=== PATIENT | male | born 1960 | race Caucasian/White ===

== ENCOUNTER → 2024-12-06 07:39 | Outpatient (REF) | payer BC, SELFPAY | LOC: RCS 07:39 | PROVIDERS: ATTENDING PHYSICIAN Internal Medicine Cardiovascular Disease; FAMILY PHYSICIAN Family Medicine | DX: I25.10 Atherosclerotic heart disease of native coronary artery without angina pectoris (principal); R53.82 Chronic fatigue, unspecified; I10 Essential (primary) hypertension; I25.5 Ischemic cardiomyopathy; I44.0 Atrioventricular block, first degree; I45.10 Unspecified right bundle-branch block; R94.39 Abnormal result of other cardiovascular function study; E11.641 Type 2 diabetes mellitus with hypoglycemia with coma | CPT/HCPCS: 78452; 93017; A9500; J2785 ==